=== PATIENT | male | born 1985 | race Caucasian/White ===

== ENCOUNTER 2021-12-08 12:06 | Emergency (ER) | payer MEDICAID ==
[~2021-12-08] VITALS: Ht 182.9 cm; Wt 81.0 kg
[2021-12-08 15:13] VITALS: BP 119/66
== END 2021-12-08 15:36 | disposition home or self-care (01) ==
LOC: ER 12:51
DX: R46.2 Strange and inexplicable behavior (principal); T41.295A Adverse effect of other general anesthetics, initial encounter; Y92.9 Unspecified place or not applicable
CPT/HCPCS: 99283